=== PATIENT | male | born 1950 | race American Indian/Alaskan Native ===

== ENCOUNTER 2021-02-25 08:29 | Day surgery (SDC) | payer MEDICARE ==
[~2021-02-25 08:29] MED LIST: ceFAZolin/STERILE WATER 2 GM/20 ML SYRINGE IV NR
[2021-02-25] MEDS ORDERED: NEOSTIGMINE 10MG/10 ML INJ MDV ONE (09:00)
[2021-02-25] MEDS ORDERED: GLYCOPYRROLATE 0.4 MG/2 ML INJ ONE (09:00)
[2021-02-25] MEDS ORDERED: SUCCINYLCHOLINE CHLORIDE 200 MG/10 ML INJ MDV ONE (09:04)
[2021-02-25] MEDS ORDERED: ROCURONIUM 50 MG/5 ML INJ IV ONE ×2 (09:04→10:53)
[2021-02-25] MEDS ORDERED: LIDOCAINE MPF (2%) 20 MG/1 ML VIAL 5 ML ONE ×2 (09:04→10:53)
[2021-02-25] MEDS ORDERED: dexAMETHasone 20 MG/5 ML VIAL ONE (09:04)
[2021-02-25] MEDS ORDERED: ONDANSETRON 4 MG/2 ML INJ ONE (09:04)
[2021-02-25] MEDS ORDERED: propofoL 200 MG/20 ML VIAL IV ONE ×2 (09:05→10:53)
[2021-02-25] MEDS ORDERED: fentaNYL 100 MCG/2 ML INJ ONE (09:05)
[2021-02-25] MEDS ORDERED: fentaNYL 100 MCG/2 ML INJ IV NR (09:32)
[2021-02-25] MEDS ORDERED: HYDROmorphone 1 MG/1 ML INJ IV PRN ×2 (09:32)
[2021-02-25] MEDS ORDERED: ONDANSETRON 4 MG/2 ML INJ IV PRN (09:32)
[2021-02-25] MEDS ORDERED: LACTATED RINGERS 1,000 ML IV SCH (09:45)
[2021-02-25] MEDS ORDERED: MIDAZOLAM 2 MG/2 ML INJ IV NR (10:00)
--- NOTE | 2021-02-25 10:10 | Anesthesia Day of Surgery ---
Anesthesia Day of Surgery - Day of Surgery Patient Examined: Yes Patient H&P Reviewed: Yes Patient is NPO: Yes
--- NOTE | 2021-02-25 10:11 | Anesthesia Consultation ---
Anesthesia Consult and Med Hx Date of service: 02/25/21 - Airway Anesthetic Teeth Evaluation: Edentulous ROM Head & Neck: Adequate Mental/Hyoid Distance: Adequate Mallampati Class: Class II Intubation Access Assessment: Good - Pre-Operative Health Status ASA Pre-Surgery Classification: ASA2 Proposed Anesthetic Plan: General Nerve Block: IS - Pulmonary Hx Respiratory Symptoms: No (+2FS) - Cardiovascular System Hx Hypertension: Yes - Central Nervous System Hx Psychiatric Problems: No - Gastrointestinal Hx Gastroesophageal Reflux Disease: Yes (In the past) - Endocrine Hx Renal Disease: No Hx Liver Disease: No Hx Non-Insulin Dependent Diabetes: No Hx Thyroid Disease: No - Hematic Hx Sickle Cell Disease: No - Other Systems Hx Cancer: Yes
[2021-02-25] MEDS ORDERED: BUPIVACAINE/PF (0.5%) 5 MG/1 ML 10 ML VIAL INFILTRATI ONE (10:13)
[2021-02-25] MEDS ORDERED: dexAMETHasone 4 MG/ML VIAL ONE (10:13)
[2021-02-25] MEDS ORDERED: BUPIVACAINE/PF (0.25%) 2.5 MG/ML 30 ML VIAL INFILTRATI ONE (10:46)
[2021-02-25] MEDS ORDERED: EPINEPHrine 30 MG/30 ML INJ IV ONE (10:47)
[2021-02-25] MEDS ORDERED: EPINEPHrine 1 MG/10 ML SYRINGE IV ONE (12:15)
[2021-02-25] MEDS ORDERED: .SODIUM CHLORIDE 0.9% IRRIG SOLN 3000 ML IR ONE (12:15)
[2021-02-25] MEDS ORDERED: SODIUM CHLORIDE P/F VIAL 10 ML 10 ML ONE (12:34)
--- NOTE | 2021-02-25 13:34 | Procedure Note ---
Date of procedure: 02/25/21 Pre-op diagnosis: left shoulder pain Post-op diagnosis: other (massive tear left rotator cuff) Procedure: Arthroscopy left shoulder with subacromial decompression Procedure The patient was brought to the OR after being given a scalene nerve block for postop pain management, he was placed on the table supine following induction with MAC anesthesia patient was turned into the right lateral decubitus position at which point the left shoulder was prepped and draped in the usual sterile manner. A timeout procedure was done to identify the patient and the correct operative site. Routine arthroscopic portals were made into the subacromial space examination of the subacromial space revealed patient had abundant bursal thickening with apparent massive thickness tears in the supraspinatus and infraspinatus tendons along with a large bone spur noted at the distal acromion using a combination of arthroscopic shaver and tissue ablator the subacromial space was debrided of soft tissue and the arm was then rotated internally and externally to see if there were a full-thickness rotator cuff tear done was seen next the arthroscope was placed into the glenohumeral joint and examination here revealed the patient to have 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 In the glenoid fossa he was noted to have thinning of the labral tissue the biceps labral complex appeared to be intact without any undue tension noted next the arthroscope was removed from the glenohumeral joint and then repositioned into the subacromial space using a 5.5 bur or acromionizer the bone spurs were debrided. A second look was done to see if there are any any residual bony and soft tissue debris and none was seen the arthroscope was then removed the stab wounds were repaired routine postop dressings were applied and the patient tolerated the procedure Anesthesia: MAC, regional Surgeon: MARTIR RAMOS (Hina Blood, 1st assist) Estimated blood loss: minimal Pathology: none Condition: stable Disposition: PACU
[2021-02-25 18:05] VITALS: BP 146/111
--- NOTE | 2021-02-25 21:30 | Post Anesthesia Evaluation ---
- Post Anesthesia Evaluation Patient Participated: Yes Airway Patent: Yes Stable Respiratory Function: Yes Nausea/Vomiting: No Temp > 96.8F: Yes Pain Manageable: Yes Adequeate Hydration: Yes Anesthesia Complications: No Block Receding Appropriately: Yes Patient on Ventilator: No
== END 2021-02-25 15:20 | disposition home or self-care (01) ==
LOC: OR 08:29
PROVIDERS: ATTEND Orthopaedic Surgery
DX: M25.512 Pain in left shoulder (principal); E78.00 Pure hypercholesterolemia, unspecified; I10 Essential (primary) hypertension; K21.9 Gastro-esophageal reflux disease without esophagitis; Z85.46 Personal history of malignant neoplasm of prostate; Z79.899 Other long term (current) drug therapy; Z79.82 Long term (current) use of aspirin; Z98.890 Other specified postprocedural states; Z80.8 Family history of malignant neoplasm of other organs or systems
CPT/HCPCS: 29822; 64415; 82962; A4217; J0171; J0330; J0690; J1100; J2250; J2405; J2704; J2710; J3010; J7120; V2790